=== PATIENT | female | born 1995 | race Caucasian/White ===

== ENCOUNTER 2020-07-08 11:24 | Outpatient (RCR) | payer BC, SELFPAY | END 2020-10-06 23:59 | disposition home or self-care (01) | LOC: ANHLAB 11:24 | PROVIDERS: Visit Provider Obstetrics & Gynecology | DX: O36.0130 Maternal care for anti-D [Rh] antibodies, third trimester, not applicable or unspecified (principal); Z3A.00 Weeks of gestation of pregnancy not specified | CPT/HCPCS: 36415; 85461 ==

== ENCOUNTER 2020-11-27 09:22 | Outpatient (CLI) | payer BC, SELFPAY ==
[2020-11-27 10:58] LABS: Hematocrit 33.5 % (37.0-47.0); Hemoglobin 11.4 g/dL (12.0-15.0)
[2020-11-27 11:07] LABS: Glucose 1 Hour PP 50gm Dose 89 mg/dL
[2020-11-27 11:48] LABS: HIV 1/2 Ab P24 Ag Result Negative (Negative)
[2020-11-30 07:31] LABS: Rapid Plasma Reagin Non-Reactive (NonReactive)
== END 2020-11-27 09:23 | disposition home or self-care (01) ==
LOC: ANHLAB 09:24
PROVIDERS: Visit Provider Obstetrics & Gynecology
DX: Z36.89 Encounter for other specified antenatal screening (principal); O36.0130 Maternal care for anti-D [Rh] antibodies, third trimester, not applicable or unspecified; Z3A.00 Weeks of gestation of pregnancy not specified
CPT/HCPCS: 36415; 82947; 85014; 85018; 86592; 86703; G0432

== ENCOUNTER 2021-02-12 04:56 | Inpatient (IN) | payer BC, SELFPAY ==
[2021-02-12] VITALS (152 sets, daily range): BP systolic 88–139; BP diastolic 52–96; PULSE 55–167; RESP 16–18; TEMP 36.4–37.6; O2SAT 76–100; BMI 34.4
--- NOTE | 2021-02-12 05:02 | LDADM ---
This patient, Nayeli Joseph, was admitted to Labor/Delivery/Recovery 104 on 02/12/21 at 04:56. Plans for labor, pain management and were discussed with patient. Patient/family oriented to hospital policies and general routines including ID bracelet, bed and alarms, visiting hours, pain management, procedures, bathroom and other care routines, personal items, smoking policy, room service/diet and guest tray routines, infant security routines, and visiting hours. Patient/Family are encouraged to report perceived risks to care and to ask questions if they do not understand what they are told or what they should do. See OBIX for further documentation.
[2021-02-12 05:39] LABS: Basophils Absolute Auto 0.1 K/mm3 (0.0-0.1); Basophils Percent Auto 0.6 % (0.2-1.2); Eosinophils Absolute Auto 0.1 K/mm3 (0-0.3); Eosinophils Percent Auto 0.8 % (0-4.4); Hematocrit 32.7 % (37.0-47.0); Hemoglobin 10.5 g/dL (12.0-15.0); Immature Granulocyte Absolute 0.53 K/mm3 (0.00-0.031); Immature Granulocyte Percent A 4.3 % (0-0.5); Lymphocytes Absolute Auto 2.17 K/mm3 (0.9-3.2); Lymphocytes Percent Auto 17.5 % (18.3-44.2); Mean Corpuscular HGB Conc 32.1 g/dl (32-36); Mean Corpuscular Hemoglobin 27.3 pg (26-34); Mean Corpuscular Volume 84.9 fl (80-100); Mean Platelet Volume 10.1 fl (7.4-10.4); Monocytes Percent Auto 8.3 % (2.6-8.5); Neutrophils Absolute Auto 8.5 K/mm3 (1.3-6.7); Neutrophils Percent Auto 68.5 % (45.5-73.1); Platelet Count Result 184 k/mm3 (150-375); Red Blood Count 3.85 M/mm3 (4.2-5.4); Red Cell Distribution Width 13.6 % (11.5-14.5); White Blood Count 12.4 K/mm3 (4.5-10.0)
[2021-02-12] MEDS: LACTATED RINGERS 1,000 ML 125 ML IV CONT ×2 (06:07→11:37)
[2021-02-12] MEDS: OXYTOCIN 30 UNITS/NS 500 ML 30 UNITS/500 ML BAG 6 UNITS IV CONT (06:07)
--- NOTE | 2021-02-12 07:22 | WPDOBADMIT ---
Obstetrics - Admit Note Admission Note: record reviewed. No pertinent additions to the history and/or any subsequent changes in the physical findings that are not consistent with the expected course of the were found. EIL SVE /-2, AROM moderate amount of clear odorless fluid Additions to the history and/or subsequent changes in the physical findings follow. None.
[2021-02-12] MEDS: CALCIUM CARBONATE (TUMS) 500 MG (200 MG ELEMENTAL) PO (08:09)
--- NOTE | 2021-02-12 10:50 | WPDANESEPP ---
Anes - Eval Pre Procedure Procedure: labor pain Date/Time: 02/12/21 10:50 Preop Diagnosis: labor pain Pre Op Diagnosis: IOL Patient Data Age: 25 Gender: F Height: 5 ft 5 in Weight: 94 kg Last Vital Signs Temp 36.6 C 02/12/21 09:00 Pulse 94 02/12/21 10:30 Resp 18 02/12/21 05:17 BP 129/85 02/12/21 10:30 Pulse Ox 99 02/12/21 10:45 Allergies Allergy/AdvReac Type Severity Reaction Status Date / Time amoxicillin [From Augmentin] Allergy Rash Verified 01/20/21 13:52 azithromycin [From Zithromax] Allergy Rash Verified 01/20/21 13:52 ceftibuten [From Cedax] Allergy Rash Verified 01/20/21 13:52 clavulanic acid Allergy Rash Verified 01/20/21 13:52 [From Augmentin] Penicillins Allergy Rash Verified 01/20/21 13:52 sulfamethoxazole Allergy Rash Verified 01/20/21 13:52 [From Septra] trimethoprim [From Septra] Allergy Rash Verified 01/20/21 13:52 Home Medications Medication Instructions Recorded Confirmed Type PNV cmb#95-ferrous fumarate-FA 1 tablet PO DAILY 01/20/21 01/20/21 History [] valacyclovir 500 mg PO Q12H 01/20/21 01/20/21 History Laboratory Tests 02/12/21 02/12/21 02/12/21 05:28 05:28 05:28 WBC 12.4 K/mm3 H K/mm3 (4.5-10.0) RBC 3.85 M/mm3 L M/mm3 (4.2-5.4) Hgb 10.5 g/dL L g/dL (12.0-15.0) Hct 32.7 % L % (37.0-47.0) MCV 84.9 fl fl (80-100) MCH 27.3 pg pg (26-34) MCHC 32.1 g/dl g/dl (32-36) RDW 13.6 % % (11.5-14.5) Plt Count 184 k/mm3 k/mm3 (150-375) MPV 10.1 fl fl (7.4-10.4) Immature Gran % (Auto) 4.3 % H % (0-0.5) Neut % (Auto) 68.5 % % (45.5-73.1) Lymph % (Auto) 17.5 % L % (18.3-44.2) [place] % (Auto) 8.3 % % (2.6-8.5) Eos % (Auto) 0.8 % % (0-4.4) Baso % (Auto) 0.6 % % (0.2-1.2) Lymph # (Auto) 2.17 K/mm3 K/mm3 (0.9-3.2) [place] # (Auto) 1.0 K/mm3 H K/mm3 (0.1-0.6) Eos # (Auto) 0.1 K/mm3 K/mm3 (0-0.3) Baso # (Auto) 0.1 K/mm3 K/mm3 (0.0-0.1) Abs Immat Gran (auto) 0.53 K/mm3 H K/mm3 (0.00-0.031) Absolute Neuts (auto) 8.5 K/mm3 H K/mm3 (1.3-6.7) Absolute Nucleated RBC 0.0 K/mm3 K/mm3 (0.0-0.012) Nucleated RBC % 0.0 % % (0.0-0.2) RPR Pending Blood Type O Positive Antibody Screen Negative Patient hx anesthesia problems: none Family hx anesthesia problems: none [facility] Family History Family History Other No pertinent family history Social History Social History Smoking status: Never smoker Substance use: never Gender identity (if verbalized by the patient): Female Spiritual care concerns: No Exam Day of Procedure 02/12/21 10:50
[2021-02-12 14:22] LABS: Rapid Plasma Reagin Non-Reactive (NonReactive)
[2021-02-12] MEDS: OXYTOCIN 30 UNITS/NS 500 ML 30 UNITS/500 ML BAG 125 UNITS IV CONT (15:10)
--- NOTE | 2021-02-12 15:12 | P.PCNOB_ITS ---
OB - Delivery Note Procedure Delivery date: 02/12/21 Procedure: vaginal delivery events: No Care Intrapartal events: None Induction method: AROM and per pitocin protocol Delivery monitor: external FHT and external uterine Laceration Description: Perineal - 2nd Degree Delivery repair: vicryl Specimen: No Quantitative Blood Loss (ml): 723 Anesthesia type: Epidural Disposition: other () [place] Baby Date of : 02/12/21 Time of : 14:45 Weeks of gestation at delivery: 40 gender: Female Weight (pounds): 9 Weight (ounces): 1 presentation: vertex position: Left Occiput Anterior Placenta delivery description: Spontaneous cord vessel description: 3 Vessels and Clamped/Cut score one minute: 9 score five minutes: 9
[2021-02-12] MEDS: IBUPROFEN 600 MG TABLET PO (17:14)
[2021-02-12] MEDS: WITCH HAZEL 40 PADS 1 PAD TOPICAL (17:32)
[2021-02-12] MEDS: BENZOCAINE 20% AER SPR (*SP) 56 GM CAN 1 SPRAY TOPICAL (17:32)
--- NOTE | 2021-02-12 17:55 | PC.NURSE ---
Patient transferred to post room #[id number] via wheelchair. Support person present. Oriented to unit, room, information board, rooming in, admission packet and security measures. Patient verbalizes understanding.
[2021-02-13] MEDS: IBUPROFEN 600 MG TABLET PO ×3 (01:06→16:57)
[2021-02-13 05:00] VITALS: BP 116/62; PULSE 111; RESP 16; TEMP 36.6; O2SAT 100
[2021-02-13 06:10] LABS: Hematocrit 24.7 % (37.0-47.0)
[2021-02-13 09:00] VITALS: BP 109/64; PULSE 102; RESP 16; TEMP 36.6; O2SAT 99
[2021-02-13] MEDS: MULTIVIT/MIN/PREN/FOL AC/IRON TABLET 1 TAB PO (09:13)
[2021-02-13] MEDS: POLYSACCHARIDE IRON COMPLEX 150 MG CAPSULE PO ×2 (09:13→16:58)
--- NOTE | 2021-02-13 09:55 | PM.OBPNVD ---
OB - PN: Subj Subjective Date/time seen: 02/13/21 09:55 Patient comments: no complaints baby status: doing well OB - PN: Obj Data Labs CBC & Chem 7: 02/13/21 05:00 Labs: Laboratory Results - last 24 hr 02/12/21 02/13/21 05:28 05:00 Hgb 8.0 L Hct 24.7 L RPR Non-reactive OB - PN A/P Plan day: 1 Plan: routine care and discharge home Time Spent With Patient Time: Total time spent is greater than 50% in coordination of care (as documented) at patient's floor/unit and/or counseling patient: Review of Systems Review of Systems: All systems reviewed & are unremarkable except as noted in HPI and below Exam Const: General: cooperative Orientation/consciousness: patient oriented x3 Psych: Affect: normal affect Attitude: cooperative Thought process: Normal thought process present Thought content: Yes Normal thought content present Insight: Good insight present (Psych) Judgement: Good judgement present (Psych)
--- NOTE | 2021-02-13 09:58 | PM.OBDSVD ---
DS: Admitting Diagnosis Admitting Diagnosis Admitting Diagnosis: ACE OB - DS: Summary OB Procedures : None OB Procedures Intrapartum: Spontaneous Vag Delivery OB Procedures: : None Time Spent with Patient Time attestation: Total time spent providing and/or coordinating discharge services: DS: Data Data Completed and Pending Labs on day of discharge: Labs from last 24 hours 02/13/21 02/12/21 05:00 05:28 Hgb 8.0 L Hct 24.7 L RPR Non-reactive Discharge Plan Discharge Attending physician on discharge: Aleksandr Brandon Consulting providers: Nan Weathers Discharging Clinician: Nan Weathers Patient Disposition: Home, Self-Care Activity: pelvic rest Diet: regular Patient Instructions: Antibiotic Form Stand Alone Forms: General Discharge Information Follow-up/Referrals: Nan Weathers, KRISTYM [Certified Nurse Urologist Physician] - 4 Weeks Discharge Medications: Continued PNV cmb#95-ferrous fumarate-FA [] 28 mg iron- 800 mcg Tablet 1 tablet PO DAILY RF: 0 Discontinued valacyclovir 500 mg Tablet 500 mg PO Q12H RF: 0 Date of admission: 02/12/21 04:56 Primary Care Provider: Valentina,Ryann Jaffe Admitting Provider: Aleksandr Brandon Attending physician on admission: Aleksandr Brandon Condition: Stable
--- NOTE | 2021-02-13 10:00 | PC.NURSE ---
Notified Nan Weathers CNM of patients hgb level of 8.0, down from starting hgb level of 10.5. No new orders at this time, vital signs WNL.
--- NOTE | 2021-02-13 10:36 | WPDANLDPN2 ---
Anes-Prog Note L&D Date/Time: 02/13/21 10:36 Comfortable throughout: labor and delivery Neuraxial method: epidural Epidural/Spinal procedure site: clean & non-tender Neuro status: Neuro function grossly intact. Cardiovascular status: normal Respiratory status: normal Airway patency: baseline Mental status: baseline Post-Op hydration status: normal Vital Signs: Last Vital Signs Temp 36.6 C 02/13/21 09:00 Pulse 102 H 02/13/21 09:00 Resp 16 02/13/21 09:00 BP 109/64 02/13/21 09:00 Pulse Ox 99 02/13/21 09:00 Pain score (VAS): 0 I/O: Intake & Output 02/12/21 02/13/21 02/13/21 23:59 07:59 15:59 Intake Total 500 Output Total 98 Balance 402 Post-procedural complaints: none Patient feedback: Patient satisfied with anesthetic care.
[2021-02-13 12:30] VITALS: BP 104/56; PULSE 98; RESP 16; TEMP 36.6; O2SAT 98
[2021-02-13] MEDS: DOCUSATE SODIUM 100 MG CAPSULE PO (16:57)
[2021-02-13] MEDS: ACETAMINOPHEN 325 MG TABLET 650 MG PO (16:58)
--- NOTE | 2021-02-13 17:00 | PC.NURSE ---
Patient viewed the discharge video Mother & Baby Care, The First Two Weeks . Patient was given the opportunity and encouraged to ask questions. Patient verbalized understanding of information shared and has been given the mother/baby guide for home reference.
--- NOTE | 2021-02-13 18:00 | PC.NURSE ---
PT received discharge instructions per protocol and verbalized understanding of such instructions. PT and spouse recipients. no barriers to learning noted. PT received instructions per one to one discussion and mom baby guide. PT verbalized understanding of such care.
[2021-02-16 08:56] VITALS: BP 128/85; PULSE 105; RESP 20; TEMP 37.1; O2SAT 100
== END 2021-02-13 19:13 | disposition home or self-care (01) | DRG 807 ==
LOC: ANHLDR 05:07 → ANHOB2 17:58
PROVIDERS: Advanced Practice Midwife; Admitting Provider Obstetrics & Gynecology; PCP Nurse Practitioner Family; Visit Provider Obstetrics & Gynecology
DX: O70.1 Second degree perineal laceration during delivery (principal); Z37.0 Single live birth; Z3A.40 40 weeks gestation of pregnancy
CPT/HCPCS: 36415; 85014; 85018; 85025; 86592; 86850; 86900; 86901; A9270; J2590; J2795; J7120

== ENCOUNTER → 2021-08-19 12:07 | Outpatient (CLI) | payer BC, SELFPAY ==
--- NOTE | ~2021-08-19 | MR_ITS ---
EXAMINATION: MR pituitary wo/w con DATE: 08/19/2021 13:20 INDICATION: Hyperprolactinemia. TECHNIQUE: Magnetic resonance imaging (MRI) of the brain and brainstem was performed without and with 15 mL MultiHance intravenous contrast. Whole-brain sequences included sagittal T1-weighted FSE, axia l diffusion-weighted FS EPI, axial T2*-weighted GRE, axial T2-weighted FLAIR Propeller, and axial T2- weighted Propeller. Small bclvo-bb-cori sequences included sagittal and coronal T1-weighted FSE cente red at the pituitary. Postcontrast sequences included small [id number]-[id number] coronal T1-weighted FSE in a time course and sagittal T1-weighted FSE and whole-brain axial T1-weighted FSE. Apparent diffusion coefficient (ADC) maps were created. COMPARISON: None. FINDINGS: The pituitary is normal in size with height of 5 mL and concave superior margin. There is n o intracranial hemorrhage, acute infarction, or abnormal intracranial mass lesion. The ventricles are normal in size. The paranasal sinuses are clear. The orbits are normal. The mastoid air cells are no rmal. IMPRESSION: 1. Normal pituitary. Normal brain. Reviewed, dictated and finalized at location A.
[2021-08-19 12:49] LABS: Estimated Glomerular Filt Rate > 60
== END ==
PROVIDERS: Visit Provider Advanced Practice Midwife
DX: E22.1 Hyperprolactinemia (principal)
CPT/HCPCS: 70553; A9577

== ENCOUNTER 2022-11-09 05:04 | Inpatient (IN) | payer OTHER, SELFPAY ==
[2022-11-09] VITALS (49 sets, daily range): BP systolic 95–139; BP diastolic 53–110; PULSE 77–135; RESP 16–18; TEMP 36.6–37.2; O2SAT 96–100; BMI 34.3
--- NOTE | 2022-11-09 05:32 | LDADM ---
This patient, Nayeli Joseph, was admitted to Labor/Delivery/Recovery 106 on 11/09/22 at 05:04. Plans for labor, pain management and were discussed with patient. Patient/family oriented to hospital policies and general routines including ID bracelet, bed and alarms, visiting hours, pain management, procedures, bathroom and other care routines, personal items, smoking policy, room service/diet and guest tray routines, infant security routines, and visiting hours. Patient/Family are encouraged to report perceived risks to care and to ask questions if they do not understand what they are told or what they should do. See OBIX for further documentation.
[2022-11-09 05:41] LABS: Basophils Absolute Auto 0.1 K/mm3 (0.0-0.1); Basophils Percent Auto 0.6 % (0.2-1.2); Eosinophils Absolute Auto 0.1 K/mm3 (0-0.3); Eosinophils Percent Auto 1.2 % (0-4.4); Hematocrit 36.3 % (37.0-47.0); Immature Granulocyte Percent A 1.9 % (0-0.5); Lymphocytes Absolute Auto 2.09 K/mm3 (0.9-3.2); Lymphocytes Percent Auto 20.1 % (18.3-44.2); Mean Corpuscular HGB Conc 33.1 g/dl (32-36); Mean Corpuscular Hemoglobin 27.6 pg (26-34); Mean Corpuscular Volume 83.4 fl (80-100); Mean Platelet Volume 10.7 fl (7.4-10.4); Monocytes Absolute Auto 0.9 K/mm3 (0.1-0.6); Monocytes Percent Auto 8.4 % (2.6-8.5); Neutrophils Absolute Auto 7.1 K/mm3 (1.3-6.7); Neutrophils Percent Auto 67.8 % (45.5-73.1); Platelet Count Result 182 k/mm3 (150-375); Red Blood Count 4.35 M/mm3 (4.2-5.4); Red Cell Distribution Width 13.8 % (11.5-14.5); White Blood Count 10.4 K/mm3 (4.5-10.0)
[2022-11-09] MEDS: LACTATED RINGERS 1,000 ML 125 ML IV CONT (05:56)
[2022-11-09] MEDS: OXYTOCIN 30 UNITS/NS 500 ML 30 UNITS/500 ML BAG IV CONT (06:12)
--- NOTE | 2022-11-09 07:30 | WPDOBADMIT ---
Obstetrics - Admit Note Admission Note: record reviewed. No pertinent additions to the history and/or any subsequent changes in the physical findings that are not consistent with the expected course of the were found. IOL at 40. 1 weeks gestation, bright light exam negative, SVE 4/80/-2 AROM moderate amount of clear odorless fluid, anticipate vaginal delivery Additions to the history and/or subsequent changes in the physical findings follow. None.
--- NOTE | 2022-11-09 09:08 | PM.OBPRVD ---
OB - Delivery Note Procedure Delivery date: 11/09/22 Procedure: Events: Elective Induction of Labor Induction method: AROM Delivery augmentation: Pitocin Delivery monitor: External FHT and External Uterine Route of delivery: Laceration Description: None Specimen: No Quantitative Blood Loss (ml): 170 Anesthesia type: None Disposition: Floor Narrative: baby precipitously delivered by RN, I arrived 30 seconds after . I clamped cord and delivered placenta. Mother and baby skin to skin and stable Baby Date of : 11/09/22 Time of : 08:42 Weeks of gestation at delivery: 40 Infant gender: Male Weight (pounds): 8 Weight (ounces): 5 presentation: vertex Placenta delivery description: Spontaneous Cord Vessel Description: 3 Vessels, Nuchal Cord (x1) and Clamped/Cut
[2022-11-09] MEDS: IBUPROFEN 600 MG TABLET PO ×2 (09:40→15:56)
[2022-11-09] MEDS: OXYTOCIN 30 UNITS/NS 500 ML 30 UNITS/500 ML BAG 125 UNITS IV CONT (09:41)
--- NOTE | 2022-11-09 10:09 | WPDANESPN ---
Anes - Prog Note Post-Op Date/Time: 11/09/22 10:09 Vital Signs: Last Vital Signs Temp 36.9 C 11/09/22 05:36 Pulse 86 11/09/22 10:00 BP 95/58 L 11/09/22 10:00 Pulse Ox 100 11/09/22 08:44 O2 Del Method Room Air 11/09/22 05:30 Pain Score (VAS): 10 (from contractions) I/O: Intake & Output 11/08/22 11/09/22 11/09/22 23:59 07:59 15:59 Intake Total 500 Balance 500 Laboratory Tests 11/09/22 05:36 11/09/22 11/09/22 11/09/22 05:36 05:36 05:36 WBC 10.4 H RBC 4.35 Hgb 12.0 D Hct 36.3 L MCV 83.4 MCH 27.6 MCHC 33.1 RDW 13.8 Plt Count 182 MPV 10.7 H Immature Gran % (Auto) 1.9 H Neut % (Auto) 67.8 Lymph % (Auto) 20.1 [place] % (Auto) 8.4 Eos % (Auto) 1.2 Baso % (Auto) 0.6 Lymph # (Auto) 2.09 [place] # (Auto) 0.9 H Eos # (Auto) 0.1 Baso # (Auto) 0.1 Abs Immat Gran (auto) 0.20 H Absolute Neuts (auto) 7.1 H Absolute Nucleated RBC 0.0 Nucleated RBC % 0.0 RPR Pending Blood Type O Positive Antibody Screen Negative Patient Feedback: . Other Findings: Epidural attempted however after just starting to attempt epidural placement, patient felt need to push. Her cervix was checked by her nurse and cervix was completely dilated. Local skin wheel and Tuohy needle passed twice, but never entered epidural space before procedure stopped.
[2022-11-09] MEDS: WITCH HAZEL 40 PADS 1 PAD TOPICAL (11:25)
--- NOTE | 2022-11-09 11:36 | OBPPTRN ---
Patient transferred to post room #[id number] via wheelchair. Support person present. Oriented to unit, room, information board, rooming in, admission packet and security measures. Patient verbalizes understanding.
[2022-11-09 12:38] LABS: Rapid Plasma Reagin Non-Reactive (NonReactive)
--- NOTE | 2022-11-09 13:24 | PC.NURSE ---
[id number] Introductions were made, then consulted with patient to assess needs related to . Mother led the conversation with her?plans to feed?her and the?experience so far. Father states mother has a successful history of their daughter Hilary. Mother was receptive to placing infant skin to skin stimulating with massage touch and talking. Resources provided for inpatient (call light nearby) and outpatient services with the office number on the feeding sheet and mom/baby guide. Mother voiced understanding of information and will call if there is a request for assistance.
--- NOTE | 2022-11-09 14:05 | PC.NURSE ---
[id number] Consulted with patient to assess needs related to . Mother led conversation with her experience with feeding baby so far. Mother works well with her infant with encouragement. Infant is sleepy and reluctant which can be typical during the hours of 2-6 post delivery. Reviewed working with infant, supporting breast and how to protect the nipples with an optimal deep latch, good positioning, and good hand washing. Encouraged understanding the benefits of skin to skin, responding to feeding cues, frequencies of feeding 8-12 times in 24 hours (approximately 2-3 hours), duration of feedings, milk production with hand expression, intake/output feeding sheet and signs of adequate intake encouraging swallowing at the breast. Reviewed and practiced hand expression and using clean hands when feeding her infant and touching her breast. Infant was spoon fed a 1/2 teaspoon of colostrum, then assisted to the breast after visualizing feeding cues. went back to sleep so he was placed skin to skin and the plan is to stimulate for in the next hour. Mother voiced understanding of the education shared, to call for assistance if the infant does not latch or if there is discomfort with . Reported to the primary RN.
[2022-11-09] MEDS: DOCUSATE SODIUM 100 MG CAPSULE PO (15:56)
--- NOTE | 2022-11-09 16:49 | PC.NURSE ---
[id number] Consult request from parents. Encouraged skin to skin, changing positioning and massage touch for stimulating sleepy baby for . Infant is less than 6 hours old and is not demonstrating feeding cues at this time. [id number] Mother is demonstrating her to the right breast independently. Infant self-detaches after aligning 's body for better digestion keeping the ear, shoulder and hip in alignment. Nipple was misshaped. Encouraged mother to latch infant with big, open, wide gape, then reviewed how to watch and listen for appropriate suck/swallow ratios. Infant has a 1:1 suck/swallow ratio most of the time. Encouraged mother to actively keep her infant and swallowing. Mother is working well with her . Parents were encouraged for their efforts. Mother voiced when to call for assistance with infant if the baby doesn't wake to breastfeed or there is pain with . Reported to the Primary RN.
[2022-11-10] MEDS: IBUPROFEN 600 MG TABLET PO (02:02)
[2022-11-10 02:10] VITALS: BP 120/83; PULSE 72; RESP 18; TEMP 36.3; O2SAT 98
[2022-11-10 05:20] LABS: Hematocrit 33.6 % (37.0-47.0); Hemoglobin 10.7 g/dL (12.0-15.0)
--- NOTE | 2022-11-10 07:57 | PM.OBPNVD ---
OB - PN: Subj Subjective Date/time seen: 11/10/22 07:57 Patient comments: no complaints baby status: doing well OB - PN: Obj Data Labs 11/10/22 02:01 Labs: Laboratory Results - last 24 hr 11/09/22 11/10/22 05:36 02:01 Hgb 10.7 L Hct 33.6 L RPR Non-reactive OB - PN A/P Plan day: 2 Plan: routine care and discharge home (F/U in 4 weeks) Time Spent With Patient Time: Total time spent is greater than 50% in coordination of care (as documented) at patient's floor/unit and/or counseling patient: Time with patient: less than 15 minutes Review of Systems Review of Systems: All systems reviewed & are unremarkable except as noted in HPI and below Exam Narrative: Fundus firm and vaginal flow controlled. No lower ext redness, warmth, or edema. Negative homans. Const: General: comfortable Chest: Breast/axilla inspection: normal inspection of the breasts Resp: Effort & Inspection: normal respiratory effort Cardio: Rate: regular rate GI: GI Palp: Yes Soft to palpation Psych: Appearance: grossly normal Affect: normal affect Attitude: cooperative Thought content: Yes Normal thought content present Judgement: Good judgement present (Psych)
[2022-11-10 08:00] VITALS: BP 116/81; PULSE 82; RESP 16; TEMP 36.9; O2SAT 100
[2022-11-10] MEDS: MULTIVIT/MIN/PREN/FOL AC/IRON TABLET 1 TAB PO (08:37)
[2022-11-10] MEDS: DOCUSATE SODIUM 100 MG CAPSULE PO (08:37)
[2022-11-10] MEDS: MEASLES,MUMPS,RUBELLA VACCINE 0.5 ML VIAL SUB-Q (11:35)
--- NOTE | 2022-11-10 16:06 | PC.NURSE ---
This morning before going home mother states everything is going well and is confident going home with the plan of .
--- NOTE | 2022-12-01 08:25 | P.DS_ITS ---
DS: Admitting Diagnosis Discharge Date 11/10/22 Admitting Diagnosis Labor OB - DS: Summary OB Procedures : None OB Procedures Intrapartum: Spontaneous Vag Delivery OB Procedures: : None Time Spent with Patient Time attestation: Total time spent providing and/or coordinating discharge services: Discharge Plan Discharge Attending physician on discharge: Nan Weathers Consulting providers: Nan Weathers ; Yodit Kulkarni ; Alexis Mcdaniel Discharging Clinician: Yodit Kulkarni Patient Disposition: Home, Self-Care Activity: pelvic rest Diet: as tolerated Discharge Instructions: Education: Mom and Baby Guide Given to: Mother Follow-Up: Call your delivering provider's office for an appointment to be seen in: 4 Weeks BREAST CARE: * Wear a snug supportive bra. * For engorgement discomfort: Breast Feeding: * Apply warm moist washcloths * Express milk as needed to relieve engorgement * Wear loose clothing * For sore nipples: * Identify correct latch-on * Apply warm moist washcloths before and after nursing * Air dry nipples after nursing * May apply Lansinoh cream to nipples PERINEAL CARE: * Until bleeding stops, use your junaid bottle after urinating * Change your pad frequently throughout the day * You may take sitz baths several times a day (fill your bathtub with warm water and soak for 20 minutes.) Do NOT bathe in the water * No tub baths until seen by your physician - You may shower ACTIVITY: * Rest as much as possible. * Do not exercise or lift anything heavier than your baby (such as laundry or other children.) * Avoid stairs or driving as much as possible. * Do not put anything into the vagina. No douching, tampons, or sexual activity until seen by physician. NOTIFY PHYSICIAN IF YOU HAVE ANY QUESTIONS OR IF ANY OF THE FOLLOWING SYMPTOMS OCCUR: * If your vaginal bleeding becomes foul smelling. * If your vaginal bleeding becomes more heavy than a period or if your bleeding changes from pink to bright red. However, you may pass an occasional walnut- sized clot once or twice for the first week . * If you experience a sharp, shooting pain in your calves. * If you discover a hard, reddened area on your breast or if you experience flu- like symptoms. DIET: * Eat regular, well-balanced meals. * Drink plenty of fluids daily. If , drink to thirst. Stand Alone Forms: General Discharge Information Follow-up/Referrals: Nan Weathers CNM [Certified Nurse Chairman And Chief Executive Officer] - Discharge Medications: Continued PNV cmb#95-ferrous fumarate-FA [] 28 mg iron- 800 mcg Tablet 1 tablet PO DAILY valacyclovir [Valtrex] 500 mg tablet 500 mg PO BID Date of admission: 11/09/22 05:04 Primary Care Provider: PHYSICIAN,LOAN OPERATIONS MANAGER Admitting Provider: Aleksandr Brandon Attending physician on admission: Aleksandr Brandon Condition: Stable
== END 2022-11-10 12:42 | disposition home or self-care (01) | DRG 806 ==
LOC: ANHLDR 05:10 → ANHOB2 11:39
PROVIDERS: Advanced Practice Midwife; Admitting Provider Obstetrics & Gynecology; Visit Provider Obstetrics & Gynecology
DX: O62.3 Precipitate labor (principal); O98.32 Other infections with a predominantly sexual mode of transmission complicating childbirth; Z37.0 Single live birth; Z3A.40 40 weeks gestation of pregnancy; O69.81X0 Labor and delivery complicated by cord around neck, without compression, not applicable or unspecified; A60.09 Herpesviral infection of other urogenital tract
CPT/HCPCS: 36415; 85014; 85018; 85025; 86592; 86850; 86900; 86901; 90710; A9270; J2590; J2795; J7120

== ENCOUNTER 2024-07-12 15:08 | Outpatient (CLI) | payer OTHER, SELFPAY ==
--- NOTE | 2024-07-16 13:56 | P.PCNHOL_ITS ---
Holter/Event Monitor Holter/Event Monitor Date of procedure: 07/16/24 Holter/Event Procedure: 24 Hr Holter Monitor Diagnosis: Tachycardia Indications: Tachycardia Image/Tracing Quality: Adequate. Total analysis of 23 hours and 59 minutes Findin. Predominant rhythm is sinus tachycardia with an average heart rate of 121 beats per minute. The minimum heart rate was 79 beats per minute. The maximum heart rate was 185 beats per minute. 2. No evidence of atrial fibrillation, pauses, heart block, or ventricular t achycardia. Cannot rule out SVT when heart rate at 185 beats per minute vs extreme sinus tachycardia. 3. No PACs 4. PVC burden is <0.01%. 5. No patient reported symptoms. Conclusion: Predominant rhythm is sinus tachycardia with an average heart rate of 121 beats per minute. Heart rate range of 79 bpm to 185 bpm. Cannot rule out SVT when heart rate at 185 beats per minute vs extreme sinus tachycardia. No patient reported symptoms.
== END 2024-07-12 15:09 | disposition home or self-care (01) ==
LOC: ANHCARD 15:09
PROVIDERS: PCP Nurse Practitioner Family; Visit Provider Advanced Practice Midwife
DX: R00.0 Tachycardia, unspecified (principal)
CPT/HCPCS: 93225; 93226

== ENCOUNTER 2024-07-29 15:27 | Outpatient (CLI) | payer OTHER, SELFPAY ==
--- NOTE | 2024-07-29 | ECHO_ITS ---
Patient Info Name: Nayeli Joseph Age: 29 years : 1995 Gender: Female Ht: 65 in Wt: 200 lbs BSA: 2.07 m2 HR: 103 bpm BP: 122 / 85 mmHg Technical Quality: Fair Exam Date: 07/29/2024 3:49 PM Exam Location: Echo Lab Patient Status: Outpatient Admit Date: 07/29/2024 Staff Ordering Physician: Nan Weathers CNM Integration Lead: Aakash Pearson RDCS Attending Provider: Nan Weathers CNM Referring Physician: Jasiel MELARA; Exam Type: CA echo doppler color flow Study Info Indications I47.1 - Supraventricular tachycardia Complete two-dimensional, color flow and Doppler transthoracic echocardiogram is performed. Summary 1. Normal LV size and systolic function. LVEF is estimated to be 55-60%. There is normal diastolic function. 2. Normal RV size and systolic function. Left Ventricle Normal LV size and systolic function. LVEF is estimated to be 55-60%. There is normal diastolic function. Right Ventricle Normal RV size and systolic function. Left Atria Left atrial chamber dimension is normal. Left atrial chamber dimension is normal. Right Atria Right atrial chamber dimension is normal. Right atrial chamber dimension is normal. Aortic Valve The aortic valve is trileaflet with no evidence of stenosis or regurgitation. Pulmonic Valve The pulmonic valve is normal. There is no color Doppler evidence of pulmonic regurgitation. Mitral Valve The mitral valve is normal. There is no mitral regurgitation. Tricuspid Valve The tricuspid valve is normal. There is no tricuspid regurgitation. Inferior Vena Cava Normal inferior vena cava with >50% collapse upon inspiration consistent with normal right atrial pressure, 3 mmHg. Normal inferior vena cava with >50% collapse upon inspiration consistent with normal right atrial pressure, 3 mmHg. Left Ventricular Outflow Tract Name Value Normal LVOT 2D LVOT Diameter 2.0 cm LVOT Doppler LVOT Peak Gradient 3 mmHg LVOT Mean Gradient 1 mmHg LVOT VTI 11 cm LVOT VTI/AV VTI Ratio 0.7 LVOT Stroke Volume 34 ml LVOT CO 3.8 l/min LVOT CI 1.8 l/min/m2 Pulmonic Valve Name Value Normal PV Doppler PV Peak Gradient 3 mmHg PV Regurgitation Doppler IN Peak End Diastolic Velocity 98 cm/s Mitral Valve Name Value Normal MV Doppler MV Decel Labette 547 cm/s2 MV PHT 31 ms
== END 2024-07-29 15:28 | disposition home or self-care (01) ==
LOC: ANHCARD 15:30
PROVIDERS: PCP Nurse Practitioner Family; Visit Provider Advanced Practice Midwife
DX: R00.0 Tachycardia, unspecified (principal)
CPT/HCPCS: 93306

== ENCOUNTER 2024-10-02 05:10 | Inpatient (IN) | payer OTHER, SELFPAY ==
[2024-10-02] VITALS (111 sets, daily range): BP systolic 104–137; BP diastolic 63–103; PULSE 86–140; RESP 16–18; TEMP 36.4–37.1; O2SAT 93–100; BMI 36.0
--- NOTE | 2024-10-02 05:22 | LDADM ---
This patient, Nayeli Joseph, was admitted to Labor/Delivery/Recovery 107 on 10/02/24 at 05:12. Plans for labor, pain management and were discussed with patient. Patient/family oriented to hospital policies and general routines including ID bracelet, bed and alarms, visiting hours, pain management, procedures, bathroom and other care routines, personal items, smoking policy, room service/diet and guest tray routines, infant security routines, and visiting hours. Patient/Family are encouraged to report perceived risks to care and to ask questions if they do not understand what they are told or what they should do. See OBIX for further documentation.
[2024-10-02 06:08] LABS: Basophils Absolute Auto 0.1 K/mm3 (0.0-0.1); Basophils Percent Auto 0.6 % (0.2-1.2); Eosinophils Absolute Auto 0.1 K/mm3 (0-0.3); Eosinophils Percent Auto 1.2 % (0-4.4); Hematocrit 34.9 % (37.0-47.0); Hemoglobin 11.2 g/dL (12.0-15.0); Immature Granulocyte Absolute 0.28 K/mm3 (0.00-0.031); Immature Granulocyte Percent A 3.1 % (0-0.5); Lymphocytes Absolute Auto 1.69 K/mm3 (0.9-3.2); Lymphocytes Percent Auto 18.7 % (18.3-44.2); Mean Corpuscular HGB Conc 32.1 g/dl (32-36); Mean Corpuscular Hemoglobin 27.3 pg (26-34); Mean Corpuscular Volume 85.1 fl (80-100); Mean Platelet Volume 10.6 fl (7.4-10.4); Monocytes Absolute Auto 0.8 K/mm3 (0.1-0.6); Monocytes Percent Auto 8.8 % (2.6-8.5); Neutrophils Absolute Auto 6.1 K/mm3 (1.3-6.7); Neutrophils Percent Auto 67.6 % (45.5-73.1); Platelet Count Result 164 k/mm3 (150-375); Red Cell Distribution Width 14.6 % (11.5-14.5); White Blood Count 9.1 K/mm3 (4.5-10.0)
[2024-10-02 06:57] LABS: HIV 1/2 Ab P24 Ag Result Negative (Negative)
--- NOTE | 2024-10-02 07:21 | WPDOBADMIT ---
Obstetrics - Admit Note Admission Note: record reviewed. No pertinent additions to the history and/or any subsequent changes in the physical findings that are not consistent with the expected course of the were found. Additions to the history and/or subsequent changes in the physical findings follow. IOL, bright light negative, SVE 160/-3 AROm clear odorless fluid
[2024-10-02] MEDS: OXYTOCIN 30 UNITS/NS 500 ML 30 UNITS/500 ML BAG IV CONT (07:41)
[2024-10-02] MEDS: LACTATED RINGERS 1,000 ML 125 ML IV CONT (07:42)
[2024-10-02 09:29] LABS: Rapid Plasma Reagin Non-Reactive (NonReactive)
[2024-10-02] MEDS: OXYTOCIN 30 UNITS/NS 500 ML 30 UNITS/500 ML BAG 125 UNITS IV CONT (13:35)
--- NOTE | 2024-10-02 13:43 | PM.OBPRVD ---
OB - Vaginal Delivery Note Procedure Delivery date: 10/02/24 Induction method: AROM and Per Pitocin Protocol Delivery monitor: External FHT and External Uterine Route of delivery: Laceration Description: None Specimen: No Quantitative Blood Loss (ml): 150 Anesthesia type: None Disposition: Floor Complications: No immediate complications Baby Date of : 10/02/24 Time of : 13:01 Gestational Age by Date: 39 Infant gender: Female presentation: vertex position: Left Occiput Anterior Placenta delivery description: Spontaneous Cord Vessel Description: 3 Vessels, Nuchal Cord (x2), Loose, Reduced and Delayed Cord Clamping score one minute: 8 score five minutes: 8
[2024-10-02] MEDS: IBUPROFEN 600 MG TABLET PO ×2 (14:35→20:08)
[2024-10-02] MEDS: WITCH HAZEL 40 PADS 1 PAD TOPICAL (14:35)
--- NOTE | 2024-10-02 16:07 | PC.NURSE ---
Patient transferred to post room #292 via [id number]. Support person present. Oriented to unit, room, information board, rooming in, admission packet and security measures. Patient verbalizes understanding.
--- NOTE | 2024-10-02 17:30 | PC.NURSE ---
Patient independently latched baby to the left breast in cradle hold. Latch appears to be deep and well maintained. Baby is suckling consistently throughout the feeding. We discussed the feeding sheet, 8-12 feeds in 24 hours, expected output, and calling for assistance tonight so the night RN may assist her as needed. admission folder given. Patient states that she has a breast pump at home and she has experience pumping with her other 2 children. Encouraged observing for early feeding cues and offering the breast often. We also discussed sleepy babies in the first 24 hours of life and that undressing , diaper changing and skin to skin can be effective ways of waking baby. Mother receptive to education and verbalized understanding of the information shared. Reported to primary RN.
[2024-10-03 03:36] VITALS: BP 118/84; PULSE 97; RESP 18; TEMP 36.4; O2SAT 100
[2024-10-03] MEDS: IBUPROFEN 600 MG TABLET PO (03:36)
[2024-10-03 05:07] LABS: Hemoglobin 10.7 g/dL (12.0-15.0)
--- NOTE | 2024-10-03 07:49 | PM.OBPNVD ---
OB - PN: Subj Subjective Date/time seen: 10/03/24 07:49 Interval history: pp day 1 doing well desires d/c home OB - PN: Obj Data Labs 10/03/24 03:49 Labs: Laboratory Results - last 24 hr 10/02/24 10/03/24 05:34 03:49 Hgb 10.7 L Hct 33.0 L RPR Non-reactive OB - PN A/P Plan day: 1 Plan: routine care Time Spent With Patient Time: Total time spent is greater than 50% in coordination of care (as documented) at patient's floor/unit and/or counseling patient: Review of Systems Review of Systems: All systems reviewed & are unremarkable except as noted in HPI and below Exam Const: General: cooperative and healthy appearing Chest: Chest palpation & inspection: normal inspection of the chest Cardio: Rate: regular rate GI: Inspection: normal to inspection Skin: General skin exam: normal color Neuro: General: patient oriented x3
--- NOTE | 2024-10-03 07:52 | PM.OBDSVD ---
DS: Admitting Diagnosis Discharge Date 10/03/24 Admitting Diagnosis IOL DS: Discharge Diagnosis Discharge Diagnosis (1) Vaginal delivery: Code(s): O80 - Encounter for full-term uncomplicated delivery Status: Acute OB - DS: Summary OB Procedures : None OB Procedures Intrapartum: Spontaneous Vag Delivery OB Procedures: : None Peripartum Data Laceration Description: None Time Spent with Patient Time attestation: Total time spent providing and/or coordinating discharge services: DS: Data Data Completed and Pending Labs on day of discharge: Labs from last 24 hours 10/03/24 10/02/24 03:49 05:34 Hgb 10.7 L Hct 33.0 L RPR Non-reactive Discharge Plan Discharge Attending physician on discharge: Van Brandon Discharging Clinician: Nan Weathers Patient Disposition: Home, Self-Care Activity: pelvic rest Diet: regular Patient Instructions: Antibiotic Form Stand Alone Forms: General Discharge Information Follow-up/Referrals: Nan Weathers, CNM [Certified Nurse Commercial Driver'S License Driver] - 4 Weeks Discharge Medications: Discontinued PNV [id number] [] 28 mg iron- 800 mcg Tablet 1 tablet PO DAILY valacyclovir [Valtrex] 500 mg tablet 500 mg PO BID Date of admission: 10/02/24 05:10 Primary Care Provider: LeodanRyann Admitting Provider: Van Brandon Attending physician on admission: Van Brandon Condition: Stable
[2024-10-03 08:00] VITALS: BP 117/70; PULSE 99; RESP 17; TEMP 36.6; O2SAT 98
[2024-10-03] MEDS: ACETAMINOPHEN 325 MG TABLET 650 MG PO (08:05)
[2024-10-03] MEDS: DOCUSATE SODIUM 100 MG CAPSULE PO (08:05)
[2024-10-03] MEDS: MULTIVIT/MIN/PREN/FOL AC/IRON TABLET 1 TAB PO (08:05)
--- NOTE | 2024-10-03 08:35 | PC.NURSE ---
Observed mother latching to the [right] breast in [cradle] position. [was] able to maintain an appropriate latch. Mother [declines] nipple pain/discomfort [throughout feeding]. Encouraged mother to keep awake and nursing at the breast for 15 minutes. Mother taught to listen for infant swallowing during feedings. Mom breastfed her last baby until January of this year. She feels like her milk is transitioning already and we reviewed that this can cause baby to be gassy and fussy due to the higher fat content. Reviewed using the blue feeding sheet to record time and duration of feeding. Mother voiced understanding of the education shared, to call for assistance if the infant does not latch or if there is discomfort with . name/number on communication board. Reported to the Primary RN.?
--- NOTE | 2024-10-03 10:22 | PC.NURSE ---
CINDI Bruce states that patient and baby will not need to do 24 hour follow up appt at [facility]. Baby will see bar turner and patient already has an appoint with CINDI Bruce.
--- NOTE | 2024-10-03 15:15 | PC.NURSE ---
Consulted with mother concerning needs and she shared her ability to independently latch infant optimally without pain. Mother is feeding appropriately for growth of and understands stimulating to eat if needed. Infant has had appropriate feedings in the last 24 hours meets the outcomes for weight, output, blood sugar and jaundice at this time. Reinforced understanding of milk production, transition of milk, signs of adequate intake, transition of stool, prevention/relief of engorgement, plugged ducts, mastitis, responsive watching for feeding cues, the different methods of stimulating to breastfeed 1-3 hours after the start of the last feeding, community resources, and when to call a provider using the resource of the feeding sheet along with the mom and baby guide. Mother voiced understanding of the information shared, is confident to continue effectively her infant at home, when to call for assistance, denies any additional assistance or education at this time. Reported to the Primary RN.
== END 2024-10-03 15:45 | disposition home or self-care (01) | DRG 807 ==
LOC: ANHLDR 06:00 → ANHOB2 16:13
PROVIDERS: Advanced Practice Midwife; Admitting Provider Obstetrics & Gynecology; PCP Nurse Practitioner Family; Visit Provider Obstetrics & Gynecology
DX: O69.81X0 Labor and delivery complicated by cord around neck, without compression, not applicable or unspecified (principal); Z37.0 Single live birth; Z3A.39 39 weeks gestation of pregnancy
CPT/HCPCS: 36415; 85014; 85018; 85025; 86592; 86703; 86850; 86900; 86901; A9270; G0432; J2590; J7120

== ENCOUNTER 2024-10-08 08:55 | Emergency (ER) | payer OTHER, SELFPAY ==
[2024-10-08 09:04] VITALS: BP 129/80; PULSE 108; RESP 16; TEMP 36.2; O2SAT 100
--- NOTE | 2024-10-08 09:44 | ED.DENTAL ---
HPI - Dental/Oral General Chief complaint: Dental/Oral Stated complaint: SORE ON LIP Time Seen by Provider: 10/08/24 09:30 Source: patient, RN notes reviewed and old records reviewed Mode of arrival: ambulatory Limitations: no limitations History of Present Illness HPI Narrative: 29 year old female who presents to [facility] care with concerns of having a HSV lesion to the upper inner lip which she noted this morning. Patient reports that she had had a herpes breakout during the last of her and had been on Valtrex up until delivery of her daughter 5 days ago. Patient tearful and concerned if she can take the Valtrex now since she is . Patient denies any fevers chills or sweats or any other ill symptoms. Patient reports that she has the Valtrex at home and has refills. MD Complaint: tooth pain Onset (ago): hour(s) (noted this morning) Severity scale (1-10): 2 Treatment prior to arrival: none Related Data Allergies Allergy/AdvReac Type Severity Reaction Status Date / Time amoxicillin (From Augmentin) Allergy Rash Verified 10/08/24 10:35 azithromycin (From Zithromax) Allergy Rash Verified 10/08/24 10:35 ceftibuten (From Cedax) Allergy Rash Verified 10/08/24 10:35 clavulanic acid (From Allergy Rash Verified 10/08/24 10:35 Augmentin) Penicillins Allergy Rash Verified 10/08/24 10:35 sulfamethoxazole (From Allergy Rash Verified 10/08/24 10:35 Septra) trimethoprim (From Septra) Allergy Rash Verified 10/08/24 10:35 Review of Systems Review of Systems: CONSTITUTIONAL: Denies fever, chills, or sweats. ENT: Denies rhinorrhea, congestion, sore throat, or otalgia. Reports small red raised sore to the upper inner mid lip CARDIOVASCULAR: Denies chest pain, palpitations, or edema. RESPIRATORY: Denies cough or dyspnea. SKIN: Denies rash or itching. MUSCULOSKELETAL: Denies myalgia. NEUROLOGIC: Denies headache All systems reviewed & are unremarkable except as noted in HPI and below [facility] Past Medical History Medical History (Updated 10/09/24 @ 19:53 by Harini Aggarwal NP) Vaginal delivery 10/03/2024 Family History Family History Grandparent Afib Scoliosis Social History Social History Smoking status: Never smoker Substance use: never Do You Feel Safe in your Home?: Yes Lack of Transportation: No Lack of Food: Never True Current Housing: I Have Housing Concerned About Future Housing: No Difficulty Paying Gas/Electric Bills: No Difficulty Paying for Meds: No Currently Unemployed: No Education: Bachelor's Degree Difficulty w/ Childcare or Family Care: No Gender identity (if verbalized by the patient): Female Spiritual care concerns: No Comments At time of signature, agree with nursing past medical, surgical, social and family history. There is no relevant family history pertinent to the presenting complaint Exam Narrative: GENERAL: Well-appearing, well-nourished, and in no acute distress. HEAD: Normocephalic, atraumatic. EYES: PERRLA and EOMI. ENT: Nares clear, no rhinorrhea or epistaxis. Mucous membranes moist. small red raised lesion to the upper inner lip mid aspect NECK: Supple.no lymphadenopathy CHEST: Clear to auscultation. No respiratory distress. SAO2 100% on room air HEART: Regular rate and rhythm. No murmur heard. Normal peripheral pulses. SKIN: Warm, dry, no rash. NEURO: No focal deficits. Alert and oriented x3. Course Course Emergency Course: Patient is aware of diagnosis, understands and agrees to treatment plan. Anticipatory guidance given. Patient agrees to follow-up as directed and is aware of reasons to seek care at the emergency department. Portions of this record may have been created with voice recognition software Level of Care: Express Care Visit Vital Signs Vital signs: Vital Signs Temperature 36.2 C L 10/08/24 09:04 Pulse Rate 108 H 10/08/24 09:04 Respiratory Rate 16 10/08/24 09:04 Blood Pressure 129/80 10/08/24 09:04 Pulse Oximetry 100 10/08/24 09:04 Temperature 36.2 C L 10/08/24 09:04 Pulse Rate 108 H 10/08/24 09:04 Respiratory Rate 16 10/08/24 09:04 Blood Pressure 129/80 10/08/24 09:04 Pulse Oximetry 100 10/08/24 09:04 Reviewed MDM - Dental/Oral MDM Narrative Medical decision making narrative: Patients pain and complaint coupled with physical findings are consistent with cold sore. There are no focal signs of space occupying lesions that are compromising to the airway; no dysphagia, odynophagia, dysphonia, or dyspnea. No uvular deviation or soft palate edema. Patient is non-toxic appearing. The floor of the mouth is soft with no signs of Raciel's Angina; no induration below mandible, no neck pain.? Patient is without trismus or drooling and able to swallow secretions.? Patient is felt appropriate for discharge home with follow up with PCP or [employer] ENGINEER. Differential Diagnosis Differential diagnosis: Likely aphthous ulcer and other (cold sore HSV lesion) Medical Records Attestation: I reviewed the patient's medical records. Critical Care Time Critical Care Time Critical Care Time: No Discharge Plan Discharge Clinical Impression: Cold sore Patient Disposition: Home, Self-Care Condition: Stable Instructions: Antibiotic Form, Oral Herpes Infection (ED) Additional Instructions: you may use salt water rinses you may apply Carmex to lesion on your lip Valtrex 1000 mg today and this p.m. for 1 day only If your symptoms persist, change or worsen significantly before you can contact your personal physician then please, without delay, go to the emergency department for further evaluation. Follow-up with PCP in 7-10 days or sooner if needed Follow up with PCP soon in regards to your blood pressure which is elevated above threshold for referral. Blood pressure above 120/80 may indicate pre-hypertension. 129/80 which is minimally elevated patient reports she does have this medication at home was concerned since she is literature reports is safe to take Patient Language: Tajik Follow-up/Referrals: Nan Weathers CNM [Primary Care Provider] - Stand Alone Forms: Work/School Release IP Time of Disposition: 10:05 Quality [place] Coma Scale Eyes: Open Verbal: Oriented and Alert Motor: Follows Commands Neyda Coma Total Score: 15
== END 2024-10-08 10:15 | disposition home or self-care (01) ==
PROVIDERS: Emergency Provider Registered Nurse; PCP Advanced Practice Midwife
DX: O98.53 Other viral diseases complicating the puerperium (principal); B00.1 Herpesviral vesicular dermatitis
CPT/HCPCS: 99211; G0463